=== PATIENT | male | born 1985 | race Caucasian/White ===

== ENCOUNTER 2019-12-15 14:20 | Emergency (ER) | payer BC, SELFPAY ==
[2019-12-15] VITALS (8 sets, daily range): BP systolic 90–118; BP diastolic 46–72; PULSE 77–114; RESP 16–24; TEMP 37.7–39.6; O2SAT 96–99
--- NOTE | ~2019-12-15 | XR_ITS ---
EXAMINATION: XR chest 1V portable DATE: 12/15/2019 15:00 INDICATION: Fever. TECHNIQUE: A single frontal view of the chest was obtained. COMPARISON: Chest single view 01/17/2016, CT abdomen and pelvis 10/05/2016 FINDINGS: The patient is rotated to his left. There is mild atelectasis in left lower lung zone. No p leural effusion or pneumothorax. The heart size is normal. IMPRESSION: 1. Mild atelectasis in left lower lung zone. Reviewed, dictated and finalized at location A.
--- NOTE | ~2019-12-15 | CT_ITS ---
EXAMINATION: CT abdomen pelvis w con DATE: 12/15/2019 19:24 INDICATION: Abdominal pain. Fever. TECHNIQUE: Computed tomography (CT) of the abdomen and pelvis was performed with 100 mL Omnipaque 350 intravenous contrast. Automated exposure control and iterative reconstruction technique were employe d. The dose-length product was 362.81 mGy-cm. COMPARISON: CT abdomen and pelvis 10/05/2016 FINDINGS: The visualized portions of the lung bases demonstrate mild atelectasis. There is a trace ri ght pleural effusion. The heart size is normal. No pericardial effusion. There is wall thickening of the distal esophagus, consistent with esophagitis. There is a perforation of the right side of the ga stroesophageal junction with 4.5 x 3.9 cm extraluminal collection of fluid and gas. There is diffuse wall thickening of the stomach. There are foci of free gas in the medial aspect of the spleen. There is moderate intrahepatic biliary duct dilatation. The common duct is dilated to 12 mm. Again seen is a stricture of the common duct, likely secondary to chronic pancreatitis. The gallbladder is not visu alized. There is severe splenomegaly measuring 21.4 cm. There is wall thickening of the transverse co julio, likely interstitial edema. There is chronic thrombosis of main portal vein and the central margareth l veins. The pancreas is ill-defined, consistent with chronic pancreatitis. There are portacaval shun ts including paraesophageal varices. There is wall thickening of much of the small bowel, likely inte rstitial edema. There is edema of the intra-abdominal fat. There is no free intraperitoneal fluid. Th ere is mild mesenteric lymphadenopathy. There is dextrocurvature of lumbar spine. IMPRESSION: 1. Perforation of the gastroesophageal junction on the right with extraluminal fluid and gas. 2. Chronic pancreatitis. 3. Chronic portal vein thrombosis. Severe splenomegaly and portocaval shunts, consistent with portal venous hypertension. 4. Chronic stricture of the common duct with moderate intrahepatic biliary duct dilatation, likely se condary to chronic pancreatitis. 5. Mild mesenteric lymphadenopathy, likely reactive. 6. Wall thickening of the small bowel transverse colon, which may be interstitial edema from portal v enous hypertension. Enterocolitis may have the same appearance. Reviewed, dictated and finalized at location A. IMPRESSION: 1. Perforation of the gastroesophageal junction on the right with extraluminal fluid and gas. 2. Chronic pancreatitis. 3. Chronic portal vein thrombosis. Severe splenomegaly and portocaval shunts, c onsistent with portal venous hypertension. 4. Chronic stricture of the common duct with moderate intrahepatic biliary duct dilatation, likely secondary to chronic pancreatitis. 5. Mild mesenteric lymphadenopathy, likely reactive. 6. Wall thickening of the small bowel transverse colon, which may be interstiti al edema from portal venous hypertension. Enterocolitis may have the same appea vijay.
[2019-12-15 15:02] LABS: Hematocrit 38.4 % (42.0-52.0); Hemoglobin 12.9 g/dL (14.0-18.0); Immature Platelet Fraction Pct 10.5 % (0.9-11.2); Mean Corpuscular HGB Conc 33.6 g/dl (32-36); Mean Corpuscular Volume 95.3 fl (80-100); Platelet Count Result 42 k/mm3 (150-375); Red Blood Count 4.03 M/mm3 (4.6-6.20); Red Cell Distribution Width 19.1 % (11.5-14.5); White Blood Count 11.3 K/mm3 (4.5-10.0)
[2019-12-15] MEDS: IBUPROFEN IV 800 MG/200 ML 800 MG/200 ML BAG 400 MG IVPB (15:04)
[2019-12-15] MEDS: SODIUM CHLORIDE 0.9% IV 1,000 ML 999 ML IV CONT ×3 (15:04→20:39)
[2019-12-15 15:18] LABS: Band Neutrophils Percent 13 % (0-6); Lymphocytes Absolute Manual 0.11 K/mm3 (1.1-4.5); Lymphocytes Percent Manual 1 % (18-44); Monocytes Absolute Manual 0.33 K/mm3 (0.1-0.90); Monocytes Percent Manual 3 % (3-9); Neutrophils Absolute Manual 10.84 K/mm3 (1.3-6.7); Neutrophils Percent Manual 83 % (46-73); Ovalocytes 1+ (NORMAL); Platelet Estimate Decreased (Adequate); Total Cells Counted 100
--- NOTE | 2019-12-15 15:21 | ED.FEVER ---
HPI - Fever General Chief Complaint: Fever Stated Complaint: fever/ray Time Seen by Provider: 12/15/19 14:41 Source: patient, family and old records reviewed Mode of arrival: ambulatory Limitations: no limitations History of Present Illness HPI Narrative: Patient is a 34-year-old male who presents per private vehicle for evaluation of not feeling well for the last couple of days patient presents today noting frontal headache and rhinorrhea patient had been seen by his primary care for this several days prior and was started on a Z-Sourav patient with complicated history followed at [facility] by hepatology and gastroenterology. Patient has not taken anything for his fever today. Patient on arrival to emergency department is resting comfortably in the room in no distress patient presents jaundiced but notes that this is normal for him. Related Data Home Medications Medication Instructions Recorded Confirmed furosemide 12/15/19 pantoprazole PO 12/15/19 sertraline mg 12/15/19 Allergies Allergy/AdvReac Type Severity Reaction Status Date / Time No Known Allergies Allergy Unverified 12/15/19 15:05 Review of Systems Review of Systems: All systems reviewed & are unremarkable except as noted in HPI and below PMFSH Past Medical History Medical History (Updated 12/15/19 @ 21:22 by Jas Connelly PA-C) Chronic pancreatitis Esophageal varices Surgical History Surgical History Hx of cholecystectomy Social History Social History Smoking status: Never smoker Alcohol intake: never Gender identity (if verbalized by the patient): Male Exam Narrative: Exam Narrative: GENERAL: Ill-appearing, well-nourished, and in no acute distress. HEAD: Normocephalic, atraumatic. EYES: PERRLA and EOMI. scleral icterus ENT: Nares clear, no rhinorrhea or epistaxis. Mucous membranes moist. Oropharynx without tonsillar hypertrophy exudate or other lesions. NECK: Supple. No adenopathy or masses. CHEST: Clear to auscultation. No respiratory distress. No wheezes rales or rhonchi HEART: Regular rate and rhythm. No murmur heard. Normal peripheral pulses. ABDOMEN: Soft, nontender, nondistended EXTREMITIES: Normal range of motion. No edema. SKIN: Warm, dry, no rash. Jaundiced appearance NEURO: No focal deficits. Alert and oriented x3. Cranial nerves II through XII grossly intact PSYCH: Normal mood and affect. Course Consultations Consultation #1: Spoke with the GI specialist at [facility] who wanted a CAT scan of the abdomen and pelvis with call back Called back to the GI specialist Dr. Cho informed him of the concerning findings he would like the patient to be transferred to [facility] emergently. No further recommendations at this time Date: 12/15/19 Time: 21:33 Consultation #2: Spoke with ER attending at [facility] Dr. Osborn who has accepted the patient Vital Signs Vital signs: Vital Signs Temperature 103.2 F H 12/15/19 14:24 Pulse Rate 114 H 12/15/19 14:24 Respiratory Rate 16 12/15/19 14:24 Blood Pressure 118/71 12/15/19 14:24 Pulse Oximetry 97 12/15/19 14:24 Temperature 99.8 F H 12/15/19 16:19 Pulse Rate 86 12/15/19 20:43 Respiratory Rate 18 12/15/19 20:43 Blood Pressure 107/72 12/15/19 20:43 Pulse Oximetry 99 12/15/19 20:43 MDM - Fever Lab Data Result diagrams: 12/15/19 14:38 12/15/19 14:38 Labs: Lab Results 12/15/19 12/15/19 12/15/19 Range/Units 14:37 14:38 14:38 WBC 11.3 H (4.5-10.0) K/mm3 RBC 4.03 L (4.6-6.20) M/mm3 Hgb 12.9 L (14.0-18.0) g/dL Hct 38.4 L (42.0-52.0) % MCV 95.3 (80-100) fl MCH 32.0 (26-34) pg MCHC 33.6 (32-36) g/dl RDW 19.1 H (11.5-14.5) % Plt Count 42 L (150-375) k/mm3 MPV TNP Immature Gran % (Auto) Not Reportable Neut %
--- NOTE | 2019-12-15 15:25 | PC.NURSE ---
Pt moved to ED 13 from ED 18 in order to monitor the patient. Report to MILES Johnson, to continue care.
[2019-12-15 15:27] LABS: INR 1.8; Prothrombin Time 20.3 Seconds (11.1-14.7)
[2019-12-15 15:28] LABS: Partial Thromboplastin Time 35.1 SECONDS (22.3-36.8)
[2019-12-15 15:30] LABS: Lactic Acid Reflex 1.5 mmol/L (0.7-2.1)
[2019-12-15 15:34] LABS: Alanine Aminotransferase 109 U/L (4-50); Albumin Level 4.1 g/dL (3.5-5.1); Alkaline Phosphatase 375 U/L (38-126); Anion Gap 8 mmol/L (8-16); Aspartate Amino Transferase 88 U/L (17-59); Bilirubin,Total 6.6 mg/dL (0.2-1.3); Blood Urea Nitrogen 9 mg/dL (9-20); CRP 8.8 mg/dL (<1.0); Calcium 8.9 mg/dL (8.4-10.2); Carbon Dioxide 23 mmol/L (22-30); Chloride 96 mmol/L (98-107); Estimated CRCL calculation 141 ml/min; Estimated Glomerular Filt Rate > 60; Glucose 218 mg/dL (75-110); Potassium 4.1 mmol/L (3.4-5.0); Sodium 127 mmol/L (137-145)
[2019-12-15 16:43] LABS: Add Urine Microscopic? YES; Amorphous Sediment Urine Few; Appearance Urine Clear (Clear); Bacteria Urine Trace /hpf; Bilirubin Urine Negative (Negative); Blood Urine Negative (Negative); Color Urine Amber (Yellow); Glucose Urine UA 1+ mg/dL (Negative); Ketones Urine Negative (Negative); Leukocyte Esterase Ur Negative LEU/UL (Negative); Mucus Urine Rare /lpf; Nitrate Urine Negative (Negative); Protein Urine Negative (Negative); RBC Urine 0-2 /hpf (0-2); Specific Grav Ur 1.016 (1.001-1.035); Urobilinogen Urine Negative mg/dL (<2.0); WBC Urine 0-3 /hpf
[2019-12-15 17:41] LABS: Lipase 20 U/L (23-300)
[2019-12-15 21:33] LABS: SARS-CoV-2 RNA PCR Negative
[2019-12-15] MEDS: PANTOPRAZOLE SODIUM IV 40 MG VIAL IV PUSH (21:38)
--- NOTE | 2019-12-15 21:57 | PC.NURSE ---
report to elana hyatt @ [facility]
== END 2019-12-15 22:26 | disposition short-term general hospital (02) ==
LOC: ANHED 14:50
PROVIDERS: Emergency Medicine Emergency Medical Services; Emergency Provider Emergency Medicine; PCP Internal Medicine
DX: K22.3 Perforation of esophagus (principal)
CPT/HCPCS: 36415; 71045; 74177; 80053; 81001; 83605; 83690; 85025; 85055; 85610; 85730; 86140; 86850; 86900; 86901; 87040; 87106; 87635; 96361; 96365; 96367; 96375; 99285; C9113; C9803; J0131; J1741; J2543; J7030; Q9967; U0003